=== PATIENT | female | born 1970 | race Caucasian/White ===

== ENCOUNTER → 2021-03-29 | Outpatient (CLI) | payer OTHER | LOC: KOH-I 14:45 | DX: M51.16 Intervertebral disc disorders with radiculopathy, lumbar region (principal); S32.059A Unspecified fracture of fifth lumbar vertebra, initial encounter for closed fracture; S32.049A Unspecified fracture of fourth lumbar vertebra, initial encounter for closed fracture | CPT/HCPCS: 72148 ==